=== PATIENT | female | born 1930 | race Caucasian/White ===

== ENCOUNTER 2017-02-28 10:18 | Emergency (ER) | payer MEDICARE ==
[~2017-02-28] VITALS: Ht 170.2 cm; Wt 68.0 kg
--- NOTE | 2017-02-28 11:55 | RAD ---
CT of the head without contrast, 02/28/2017: History: Fall, injury Comparison is made to a study from 07/29/2010. The ventricles are within normal limits in size. There is no shift of the midline structures. There is no evidence of acute intracranial hemorrhage or mass effect. IMPRESSION: No acute intracranial abnormality is detected. CT of the facial bones without contrast, 02/28/2017: Noncontrast scans were obtained with multiplanar reconstructions produced. Slight deformity of the left side of the nasal bones is probably old. No acute fracture is identified. No free fluid is evident in the paranasal sinuses. The orbital contents are unremarkable. IMPRESSION: No acute facial bone abnormality is detected. CT of the cervical spine without contrast, 02/28/2017: Noncontrast scans were obtained with multiplanar reconstructions produced. There are moderate degenerative changes involving scattered facet joints bilaterally. There is partial fusion of the facet joints at the C2-3 level. There are mild scattered marginal spurs. No acute fracture or dislocation is identified. No high-grade central spinal stenosis is evident. IMPRESSION: 1. Mild to moderate multilevel degenerative change. 2. No acute bony abnormality is detected. PQRS Compliance Statement: One or more of the following individualized dose reduction techniques were utilized for this examination: 1. Automated exposure control 2. Adjustment of the mA and/or kV according to patient size 3. Use of iterative reconstruction technique
[2017-02-28 11:56] VITALS: BP 167/74
[2017-02-28] MEDS: TETANUS AND DIPHTHERIA TOX/PF 0.5 ML DISP.SYRIN. VAX IM ONE (12:27)
[2017-02-28] MEDS: ACETAMINOPHEN 500 MG TABLET PO ONE (12:28)
--- NOTE | 2017-02-28 14:54 | ED.ADGEN ---
Past Medical History Past Medical History: Anxiety, Hypertension, Other Additional Past Medical Histor: thyroid disease Past Surgical History: Hysterectomy, Other Additional Past Surgical Histo: hip surgery, thyroid nodules removed, Alcohol Use: None Drug Use: None Adult General Chief Complaint Chief Complaint: MECHANICAL FALL HPI HPI Patient is a 86 year old woman, history of anxiety, hypertension, who presents to the emergency department after a mechanical fall. Patient states that she was walking into a store, when she struck her toe against a raised doorway, and fell forward, striking her nose and left cheek against a metal railing. She states that she struck her left arm against the wall, and then did fall to her knees. She denies any loss of consciousness, any vision changes, any focal weakness, numbness, tingling, nausea or vomiting. This occurred about 40 minutes prior to arrival in the emergency department. Patient does not take any blood thinners, has no history of head injuries, denies any preceding symptoms, no chest pain, shortness breath, no fevers, chills, urinary complaints or other concerns. She is compliant with all medications. C-collar placed upon arrival to the emergency department based on mechanism injury and age. Review of Systems Review of Systems Constitutional: Denies fever or chills. [] Eyes: Denies change in visual acuity. [] HENT: Denies nasal congestion or sore throat. [] Left-sided facial pain after mechanical fall. Respiratory: Denies cough or shortness of breath. [] Cardiovascular: Denies chest pain or edema. [] GI: Denies abdominal pain, nausea, vomiting, bloody stools or diarrhea. [] : Denies dysuria. [] Musculoskeletal: Denies back pain or joint pain. [] Integument: Denies rash. [] Neurologic: Denies headache, focal weakness or sensory changes. [] Endocrine: Denies polyuria or polydipsia. [] Lymphatic: Denies swollen glands. [] Psychiatric: Denies depression or anxiety. [] Current Medications Current Medications Current Medications Medications (Trade) Dose Ordered Sig/Susan Start Time Stop Time Status Last Admin Dose Admin Acetaminophen (Tylenol) 1,000 mg 1X ONCE 02/28/17 12:30 02/28/17 12:31 DC Tetanus/ Diphtheria Toxoids (Tenivac Syringe) 0.5 ml ONCE ONCE 02/28/17 12:30 02/28/17 12:31 DC 02/28/17 12:27 0.5 ML Allergies Allergies Allergies Coded Allergies Type Severity Reaction Last Updated Verified No Known Drug Allergies 02/28/17 No Physical Exam Physical Exam Constitutional: Well developed, well nourished, no acute distress, non-toxic appearance. [] HENT: Normocephalic, patient with a small amount of swelling and an abrasion noted to the left lateral aspect of the lower lip, no teeth are loose, no tongue injury, patient with normal jaw strength and bites, tenderness to palpation along the left zygomatic arch, as Dr. motions are intact and painless , patient with swelling noted to the distal aspect on the left side of the nose , without any hemotympanum or septal hematoma identified,, bilateral external ears normal, oropharynx moist, no oral exudates.[] Eyes: PERRLA, EOMI, conjunctiva normal, no discharge. [] Neck: Normal range of motion, no tenderness, supple, no stridor. [] Cardiovascular:Heart rate regular rhythm, no murmur, S1, S2, no rubs or gallops. [] Lungs & Thorax: Bilateral breath sounds clear to auscultation, no wheezing, ROM , rales. No chest or crepitus or tenderness. [] Abdomen: Bowel sounds normal, soft, no tenderness, no rebound, rigidity, no guarding, no masses, no pulsatile masses. [] Skin: Warm, dry, no erythema, no rash. [] Back: No midline step-offs or deformities, no tenderness, no CVA tenderness. [] Extremities: No tenderness, no cyanosis, no clubbing, ROM intact, no edema. [] Neurologic: Alert and oriented X 3, normal motor function, normal sensory function, no focal deficits noted. [] Psychologic: Affect normal, judgement normal, mood normal. [] Current Patient Data Vital Signs Vital Signs Date Time Temp Pulse Resp B/P (MAP) Pulse Ox O2 Delivery O2 Flow Rate FiO2 02/28/17 11:56 87 16 167/74 (105) 95 Room Air 02/28/17 10:33 97.9 97.9 EKG EKG Not indicated. [] Radiology/Procedures Radiology/Procedures [][facility] [address] [place] [address] IMAGING REPORT Signed PATIENT: ALMA SHARP ACCOUNT: [id number] : 1930 LOCATION: ER AGE: 86 SEX: F EXAM [id number] STATUS: REG ER ORD. PHYSICIAN: FATOU BRYANT DO REASON: fall/facial trauma PROCEDURE: CT CERVICAL SPINE WO CONTRAST; CT HEAD AND MAXILLOFACIAL WO CT of the head without contrast, 02/28/2017: History: Fall, injury Comparison is made to a study from 07/29/2010. The ventricles are within normal limits in size. There is no shift of the midline structures. There is no evidence of acute intracranial hemorrhage or mass effect. IMPRESSION: No acute intracranial abnormality is detected. CT of the facial bones without contrast, 02/28/2017: Noncontrast scans were obtained with multiplanar reconstructions produced. Slight deformity of the left side of the nasal bones is probably old. No acute fracture is identified. No free fluid is evident in the paranasal sinuses. The orbital contents are unremarkable. IMPRESSION: No acute facial bone abnormality is detected. CT of the cervical spine without contrast, 02/28/2017: Noncontrast scans were obtained with multiplanar reconstructions produced. There are moderate degenerative changes involving scattered facet joints bilaterally. There is partial fusion of the facet joints at the C2-3 level. There are mild scattered marginal spurs. No acute fracture or dislocation is identified. No high-grade central spinal stenosis is evident. IMPRESSION: 1. Mild to moderate multilevel degenerative change. 2. No acute bony abnormality is detected. PQRS Compliance Statement: One or more of the following individualized dose reduction techniques were utilized for this examination: 1. Automated exposure control 2. Adjustment of the mA and/or kV according to patient size 3. Use of iterative reconstruction technique DICTATED and SIGNED BY: AVELINO ARNOLD MD DATE: 02/28/17 1142 CC: ZELDA KOHLER MD; FATOU BRYANT DO ~ Impressions: [facility] [address] [place] [address] IMAGING REPORT Signed PATIENT: ALMA SHARP ACCOUNT: [id number] : 1930 LOCATION: ER AGE: 86 SEX: F EXAM [id number] STATUS: REG ER ORD. PHYSICIAN: FATOU BRYANT DO REASON: fall/facial trauma PROCEDURE: CT CERVICAL SPINE WO CONTRAST; CT HEAD AND MAXILLOFACIAL WO CT of the head without contrast, 02/28/2017: History: Fall, injury Comparison is made to a study from 07/29/2010. The ventricles are within normal limits in size. There is no shift of the midline structures. There is no evidence of acute intracranial hemorrhage or mass effect. IMPRESSION: No acute intracranial abnormality is detected. CT of the facial bones without contrast, 02/28/2017: Noncontrast scans were obtained with multiplanar reconstructions produced. Slight deformity of the left side of the nasal bones is probably old. No acute fracture is identified. No free fluid is evident in the paranasal sinuses. The orbital contents are unremarkable. IMPRESSION: No acute facial bone abnormality is detected. CT of the cervical spine without contrast, 02/28/2017: Noncontrast scans were obtained with multiplanar reconstructions produced. There are moderate degenerative changes involving scattered facet joints bilaterally. There is partial fusion of the facet joints at the C2-3 level. There are mild scattered marginal spurs. No acute fracture or dislocation is identified. No high-grade central spinal stenosis is evident. IMPRESSION: 1. Mild to moderate multilevel degenerative change. 2. No acute bony abnormality is detected. PQRS Compliance Statement: One or more of the following individualized dose reduction techniques were utilized for this examination: 1. Automated exposure control 2. Adjustment of the mA and/or kV according to patient size 3. Use of iterative reconstruction technique DICTATED and SIGNED BY: AVELINO ARNOLD MD DATE: 02/28/17 1142 CC: ZELDA KOHLER MD; FATOU BRYANT DO ~ Course & Med Decision Making Course & Med Decision Making Pertinent Labs and Imaging studies reviewed. (See chart for details) Patient agreeable to receiving imaging of the face, head and neck. CT imaging obtained without issue, no concerning findings identified. Patient's c-collar cleared without issue in the ED. Patient ambulating without difficulty on reevaluation, states that she is feeling well this time, denies any complaints, states she is rated go home. I did discuss concerning symptoms that prompt return to the emergency department, patient's tetanus status was updated in the ED, she received Tylenol for pain. Patient discharged home in stable condition with plan and precautions as stated. Dragon Disclaimer Dragon Disclaimer This electronic medical record was generated, in whole or in part, using a voice recognition dictation system. Departure Impression: Primary Impression: Closed head injury Additional Impression: Facial contusion Disposition: 01 HOME, SELF-CARE Condition: IMPROVED Problem Qualifiers FATOU BRYANT DO Feb 28, 2017 14:54
== END 2017-02-28 12:38 | disposition home or self-care (01) ==
LOC: ER 10:18
DX: S09.8XXA Other specified injuries of head, initial encounter (principal); S00.83XA Contusion of other part of head, initial encounter; S00.511A Abrasion of lip, initial encounter; F41.9 Anxiety disorder, unspecified; I10 Essential (primary) hypertension; W18.00XA Striking against unspecified object with subsequent fall, initial encounter; Y93.01 Activity, walking, marching and hiking; Y99.8 Other external cause status; Y92.512 Supermarket, store or market as the place of occurrence of the external cause
CPT/HCPCS: 70450; 70486; 72125; 90471; 90714; 99284-25